=== PATIENT | male | born 1985 | race African-American/Black ===

== ENCOUNTER 2021-06-15 12:46 | Emergency (ER) | payer OTHER, MEDICAID ==
[~2021-06-15] VITALS: Ht 188 cm; Wt 81.6 kg
[2021-06-15 13:00] VITALS: BP_SYST 132
[2021-06-15 14:05] VITALS: BP_SYST 138
== END 2021-06-15 14:05 | disposition home or self-care (01) ==
LOC: SED 12:46
DX: S83.8X2A Sprain of other specified parts of left knee, initial encounter (principal); X50.0XXA Overexertion from strenuous movement or load, initial encounter; Y93.89 Activity, other specified; Y92.89 Other specified places as the place of occurrence of the external cause; Y99.8 Other external cause status
CPT/HCPCS: 73560-TC; 99283